=== PATIENT | male | born 1955 | race Two or more races ===

== ENCOUNTER 2023-08-06 10:21 | Emergency (ER) | payer OTHER ==
[~2023-08-06] VITALS: Ht 180.3 cm; Wt 74.8 kg
[2023-08-06] MEDS ORDERED: GLUMETZA500 MG (10:30)
[2023-08-06] MEDS ORDERED: LOSARTAN-HCTZ1 EAC1 PO (10:31)
[2023-08-06] MEDS ORDERED: KETOROLAC TROMETHAMINE 30 MG VIAL IM STA (11:54)
[2023-08-06] MEDS ORDERED: CEFTRIAXONE SODIUM 1,000 MG VIAL IM STA (11:55)
[2023-08-06 12:33] LABS: HEMATOCRIT 43.1 % (39.0-48.0); HEMOGLOBIN 14.4 g/dL (13-16.00); MEAN CORPUSCULAR HEMOGLOBIN 27.4 pg (27.00-32.0); MEAN CORPUSCULAR HGB CONC 33.4 g/dl (32.0-36.0); PLATELET COUNT 160 K/uL (150-450); RED BLOOD COUNT 5.25 M/uL (4.00-6.00); RED CELL DISTRIBUTION WIDTH 14.9 % (11.5-14.5)
[2023-08-06 12:53] LABS: CALCIUM 9.9 mg/dL (8.5-10.1); CREATININE SERUM 1.26 mg/dL (0.70-1.30); GFR 56.58; POTASSIUM 4.14 mEq/L (3.5-5.1)
== END 2023-08-06 16:30 | disposition home or self-care (01) ==
LOC: ER 10:22
PROVIDERS: General Practice
DX: M79.675 Pain in left toe(s) (principal)
CPT/HCPCS: 36415; 96372; 99283; J0696; J1885

== ENCOUNTER 2023-08-10 06:59 | Outpatient (CLI) | payer OTHER ==
[~2023-08-10 06:59] MED LIST: GLUMETZA500 MG; LOSARTAN-HCTZ1 EAC1 PO
== END 2023-08-10 07:20 | disposition home or self-care (01) ==
LOC: MRI 06:59
PROVIDERS: ATTEND Specialist
DX: E11.621 Type 2 diabetes mellitus with foot ulcer (principal); M86.9 Osteomyelitis, unspecified
CPT/HCPCS: 73718